=== PATIENT | female | born 1980 | race Caucasian/White ===

== ENCOUNTER 2016-11-25 14:36 | Emergency (ER) | payer MEDICAID ==
[2016-11-25] MEDS ORDERED: SUDAFED PO PRN (18:12)
[2016-11-25] MEDS ORDERED: TORADOL IM ONE (18:12)
[2016-11-25] MEDS ORDERED: DELTASONE PO ONE (18:12)
[2016-11-25] MEDS ORDERED: TYLENOL PO ONE (18:24)
[2016-11-25] MEDS ORDERED: SUDAFED PO ONE (19:00)
--- NOTE | 2016-11-25 20:05 | Emergency Department Report ---
Entered by MYRON MCCURDY, acting as scribe for FLO DOYLE PA. - General Chief Complaint: Upper Respiratory Infection Stated Complaint: COLD SX Source: patient Mode of arrival: Ambulatory Limitations: No Limitations - History of Present Illness Initial Comments: 36 year old female present to the ED c/o of a headache that began 4 days ago. Associated symptoms include rhinorrhea, generalized weakness, sore throat, body aches, coughing, nausea, vomiting x 1, nasal congestion and a fever (max t = 101 ), but denies diarrhea. The pt states that her headache is worse when coughing. The pt reports that she took Robitussin and Tylenol with no relief of symptoms. PMHx includes diabetes mellitus, lupus, anemia, asthma and frequent bronchitis. Reports compliance with Metformin, xopenex inhaler, and iron Rx and reports her PCP discontinued Prednisone Rx 4 weeks ago. Her primary care physician is located in [place], [place] at [facility]. [facility] 11/25/2016. MD Complaint: fever (max t = 101), cough, sore throat, rhinorrhea, nasal congestion Onset/Timin -: days(s) Severity: severe Quality: aching Consistency: constant Improves With: nothing Worsens With: deep breaths, other (coughing) Associated Symptoms: fever, myalgias, headache, rhinorrhea, nasal congestion, sore throat, cough, nausea, vomiting (x 1 last night), other (generalized weakness). denies: stiff neck, chest pain, abdominal pain, diarrhea, rash, ear pain Treatments Prior to Arrival: Acetaminophen (Tylenol), "cold medicine" ( Robitussin) - Related Data Previous Rx's Medication Instructions Recorded Last Taken Type ALBUTEROL NEB's [Proventil 0.083% 2.5 mg IH TID PRN #1 box 11/25/16 Unknown Rx NEBS] Cetirizine HCl [ZyrTEC] 10 mg PO QDAY #30 capsule 11/25/16 Unknown Rx Fluticasone [Flonase] 1 spray NS QDAY #1 bottle 11/25/16 Unknown Rx Allergies Allergy/AdvReac Type Severity Reaction Status Date / Time Penicillins Allergy Unknown Verified 11/25/16 14:48 ED Review of Systems Comment: All other systems reviewed and negative Constitutional: chills, fever (max t = 101), weakness (generalized), other ( body aches) ENT: throat pain, other (rhinorrhea). denies: ear pain Respiratory: cough. denies: shortness of breath Cardiovascular: denies: chest pain Gastrointestinal: nausea, vomiting (x 1 last night). denies: abdominal pain, diarrhea Musculoskeletal: myalgia Skin: denies: rash Neurological: headache (worsened with coughs) ED Past Medical Hx - Past Medical History Hx Diabetes: Yes Additional medical history: lupus,anemia - Social History Smoking Status: Never Smoker Substance Use Type: None - Medications Home Medications: Home Medications Medication Instructions Recorded Confirmed Last Taken Type ALBUTEROL NEB's [Proventil 0.083% 2.5 mg IH TID PRN #1 box 11/25/16 Unknown Rx NEBS] Cetirizine HCl [ZyrTEC] 10 mg PO QDAY #30 capsule 11/25/16 Unknown Rx Fluticasone [Flonase] 1 spray NS QDAY #1 bottle 11/25/16 Unknown Rx ED Physical Exam - General Limitations: No Limitations General appearance: alert, in no apparent distress - Head Head exam: Present: atraumatic, normocephalic - Eye Eye exam: Present: PERRL, EOMI. Absent: scleral icterus, conjunctival injection , periorbital swelling - ENT ENT exam: Present: normal exam, mucous membranes moist (Post nasal drainage), TM 's normal bilaterally, normal external ear exam - Expanded ENT Exam Expanded Throat exam: Positive: tonsillomegaly. Negative: tonsillar erythema, tonsillar exudate - Neck Neck exam: Present: normal inspection, full ROM (supple). Absent: tenderness, lymphadenopathy, thyromegaly - Respiratory Respiratory exam: Present: normal lung sounds bilaterally, respiratory distress. Absent: wheezes, rales, rhonchi, stridor, decreased breath sounds - Cardiovascular Cardiovascular Exam: Present: regular rate, normal rhythm, normal heart sounds. Absent: systolic murmur, diastolic murmur, rubs, gallop - Neurological Exam Neurological exam: Present: alert, oriented X3 - Psychiatric Psychiatric exam: Present: normal affect, normal mood - Skin Skin exam: Present: warm, dry, intact. Absent: rash, cyanosis ED Course Vital Signs 11/25/16 14:44 Temperature 99.3 F Pulse Rate 96 H Respiratory 20 Rate Blood Pressure 181/101 O2 Sat by Pulse 100 Oximetry ED Medical Decision Making - Medical Decision Making Patient's been evaluated by this provider fast track. Teslas sent out came back negative. Gave patient Tylenol 1000 mg by mouth Toradol 60 mg IM Prednison 40 mg, Sudafed 60 mg. Discharged patient on Zyrtec, Flonase discuss about getting some [id number] Afrin to use only at night for no more than 3 days discussed the rebound tenderness could happen if she is more than 3 days. Patient verbalized understanding ED Disposition Clinical Impression: URI (upper respiratory infection) Qualifiers: URI type: unspecified URI Qualified Code(s): J06.9 - Acute upper respiratory infection, unspecified Disposition: DISCHARGED TO HOME OR SELFCARE Is pt being admited?: No Does the pt Need Aspirin: No Condition: Stable Instructions: Cold Symptoms (ED) Additional Instructions: Take medications as prescribed . Follow up with your pcp if symptoms does not improve. Prescriptions: ALBUTEROL NEB's [Proventil 0.083% NEBS] 2.5 mg IH TID PRN #1 box PRN Reason: Wheezing Cetirizine HCl [ZyrTEC] 10 mg PO QDAY #30 capsule Fluticasone [Flonase] 1 spray NS QDAY #1 bottle Referrals: PRIMARY CARE,MD [Primary Care Provider] - 3-5 Days This documentation as recorded by the KAZ goodman JASMINE,accurately reflects the service I personally performed and the decisions made by me, FLO DOYLE PA.
[2016-11-25 20:19] VITALS: BP 147/84
== END 2016-11-25 20:19 | disposition home or self-care (01) ==
LOC: ED 14:36
DX: J06.9 Acute upper respiratory infection, unspecified (principal); E11.9 Type 2 diabetes mellitus without complications
CPT/HCPCS: 87400; 96372; 99282; J1885; J7512